=== PATIENT | male | born 1930 | race Caucasian/White ===

== ENCOUNTER → 2016-05-11 | Outpatient (CLI) | payer MEDICARE ==
[~2016-05-11] MED LIST: ACET-703 PO; ASPI-110 PO; D32000TA; DICY10CA12 PO; DOXE50CA3 PO; DULO1CAP3 PO; FOLI400T PO; GABA300C5 PO; LORA-373 PO; NAPR375T PO; OMEP20TA PO; PRED10 PO; SIMV20TA PO; TAMS0.4C4 PO
--- NOTE | 2016-05-11 11:42 | RADRPT ---
EXAM DATE/TIME: 05/11/2016 00:00 [facility] COMPARISON: No previous studies available for comparison. INDICATIONS : Dysphagia FLUORO TIME: 1.9 minutes IMAGE COUNT: 0 CONTRAST: Dose as prescribed by speech pathologist. MEDICAL HISTORY : None. SURGICAL HISTORY : cervical fusion ENCOUNTER: Initial ACUITY: 1 month PAIN SCORE: 0/10 LOCATION: Bilateral esophagus FINDINGS: A modified barium swallow was performed with speech pathology. Patient was given a variety of liquids to swallow. Patient is noted to have extensive cervical spine fusion. Cervical esophagus is noted to be normal jacque th anatomic and physiologic with no penetration or aspiration. For a full detailed report, see report by the speech pathologist. CONCLUSION: Please speech pathology report Bob Parikh MD on May 11, 2016 at 11:40 Board Certified Radiologist. This report was verified electronically.
== END ==
LOC: HRAD 10:32
PROVIDERS: ATTEND Family Medicine
DX: R13.10 Dysphagia, unspecified (principal)
CPT/HCPCS: 74230; 92611; G8996; G8997; G8998

== ENCOUNTER 2016-12-22 11:38 | Emergency (ER) | payer MEDICARE ==
[~2016-12-22] VITALS: Ht 180.3 cm; Wt 80.0 kg
[~2016-12-22 11:38] MED LIST changes: -HYDR-3533 PO; -PRED1 PO; -TYLE325T PO
[2016-12-22 11:52] VITALS: BP 131/68; PULSE 88; RESP 18; TEMP 97.9; O2SAT 93
[2016-12-22] MEDS ORDERED: PRED1 PO (12:13)
--- NOTE | 2016-12-22 13:13 | RADRPT ---
EXAM DATE/TIME: 12/22/2016 12:53 [facility] COMPARISON: CT BRAIN W/O CONTRAST, March 20, 2016, 17:09. INDICATIONS : Fell last night. RADIATION DOSE: 62.01 CTDIvol (mGy) MEDICAL HISTORY : Gastroesophageal reflux disease. Anticoagulant therapy. SURGICAL HISTORY : Fusion, cervical. ENCOUNTER: Initial ACUITY: 2 days PAIN SCALE: 3/10 LOCATION: Left cranial TECHNIQUE: Multiple contiguous axial images were obtained of the head. Using automated exposure control and adjustment of the mA and/or kV according to patient size, radiation dose was kept as low as reasonably achievable to obtain optimal diagnostic quality images. DICOM format image data is av ailable electronically for review and comparison. FINDINGS: Noncontrast axial head CT demonstrates the ventricles to be enlarged with a prominent sulcal pattern compatible with atrophy. No acute intracranial hemorrhage, acute cortical infarction, mass or midline shift is seen. Posterior fossa structures are unremarkable. Bone windows demonstrate no abnormality. CONCLUSION: Atrophy. No evidence of acute intracranial pathology. Arpan Blake MD on December 22, 2016 at 13:11 Board Certified Radiologist. This report was verified electronically.
--- NOTE | 2016-12-22 13:45 | RADRPT ---
EXAM DATE/TIME: 12/22/2016 12:53 [facility] COMPARISON: CT CERVICAL SPINE W/O CONTRAST, March 20, 2016, 17:09. INDICATIONS : Fell last night. Left sided neck pain. RADIATION DOSE: 26.69 CTDIvol (mGy) MEDICAL HISTORY : Gastroesophageal reflux disease. Anticoagulant therapy. SURGICAL HISTORY : Fusion, cervical. ENCOUNTER: Initial ACUITY: 2 days PAIN SCALE: 3/10 LOCATION: Left neck TECHNIQUE: Volumetric scanning of the cervical spine was performed. Multiplanar reconstructions in the sagittal, coronal and oblique axial planes were performed. Using automated exposure control and adjustment o f the mA and/or kV according to patient size, radiation dose was kept as low as reasonably achievable to obtain optimal diagnostic quality images. DICOM format image data is available electronically f or review and comparison. FINDINGS: CT of the cervical spine was performed in sagittal and axial planes. There is anterolisthesis likely related to facet arthritis at C7-T1 at 3-4 mm. There has been no significant change when compared to the prior exam. There is anterior cervical fusion with a plate anteriorly from C3-C7. No focal areas of marrow replacement are identified. A type III odontoid fracture is present oriented in the coronal plane extending from anterior superior to posterior inferior without retropulsion. There is no widen ing of the preodontoid space. A small epidural hematoma is present without stenosis. C2-C3: Small epidural hematoma without stenosis. Bilateral facet arthritis is present C3-C4: Postsurgical changes as above. There is moderate facet arthritis bilaterally with ligamentum flavum h ypertrophy. There is mild neural foraminal narrowing bilaterally. C4-C5: There is no significant spinal canal stenosis. There is moderate facet arthritis bilaterally with lig amentum flavum hypertrophy. The neural foramina are clear bilaterally. C5-C6: Postsurgical changes as above. There is no significant spinal canal stenosis. C6-C7: There is no significant spinal canal stenosis. The neural foramina are clear bilaterally. C7-T1: There is moderate facet arthritis bilaterally with ligamentum flavum hypertrophy. The neural foramina are clear bilaterally. CONCLUSION: 1. Type III odontoid fracture as above without retropulsion. Arpan Blake MD on December 22, 2016 at 13:39 Board Certified Radiologist. This report was verified electronically.
--- NOTE | 2016-12-22 13:53 | PD ---
HPI Chief Complaint: Head Injury Time Seen by Provider: 12:30 Travel History International Travel<30 days: No Contact w/Intl Traveler<30days: No Traveled to known affect area: No History of Present Illness HPI 86yo M presents to the ED with c/o left side neck pain after slip and fall this morning. States he got out of bed to use the bathroom and was walking with his walker but fell in the bathroom and hit his head and neck in the shower. He did not turn on the light so he thinks he may have slipped on something. Denies any dizziness or chest pain prior to fall. Denies any LOC, chest pain, sob, n/v, abdominal pain, focal weakness or numbness. PFSH Past Medical History Hx Anticoagulant Therapy: Yes (ASA 81MG) Anxiety: Yes Depression: Yes High Cholesterol: Yes GERD: Yes Medical other: Yes (ENLARGED PROSTATE) Neurologic: Yes (neuropathy ) Triglycerides - High: Yes Tetanus Vaccination: < 5 Years Influenza Vaccination: No Social History Alcohol Use: No Tobacco Use: No Substance Use: No Allergies-Medications (Allergen,Severity, Reaction): Coded Allergies: No Known Allergies (Unverified , 12/22/16) Reported Meds & Prescriptions Reported Meds & Active Scripts Active Lortab (Hydrocodone-Acetaminophen) 5-325 Mg Tab 1 Tab PO Q6H PRN Reported Prednisone 1 Mg Tab 3 Mg PO DAILY Aspirin 81 (Aspirin) 81 Mg Tabdr 81 Mg PO DAILY D3 (Cholecalciferol) 2,000 Unit Tab Folic Acid 400 Mcg Tab 400 Mcg PO DAILY Tamsulosin (Tamsulosin HCl) 0.4 Mg Cap 0.4 Mg PO HS Simvastatin 20 Mg Tab 20 Mg PO DAILY Omeprazole 20 Mg Tab 20 Mg PO DAILY Naproxen 375 Mg Tab 375 Mg PO BID Gabapentin 300 Mg Cap 300 Mg PO DAILY Duloxetine DR (Duloxetine HCl) 60 Mg Capdr 60 Mg PO DAILY Doxepin (Doxepin HCl) 50 Mg Cap 50 Mg PO HS Dicyclomine (Dicyclomine HCl) 10 Mg Cap 10 Mg PO TID PRN Review of Systems Except as stated in HPI: all other systems reviewed are Neg Physical Exam Narrative GEN: 86yo M not in distress. SKIN: Warm and dry. HEAD: Normocephalic, atraumatic. ENT: No septal hematoma. NECK: In cervical spine collar. TTP left neck. CV: S1, S2. Lungs: CTA B/L, equal breath sounds. Abd: soft, NT/ND. Ext: No gross deformities. Distal pulses intact. Neuro: CNII-XII grossly intact. Muscle strength 5/5 in all extremities. Sensation intact. Data Data Last Documented VS Vital Signs Date Time Temp Pulse Resp B/P (MAP) Pulse Ox O2 Delivery O2 Flow Rate FiO2 12/22/16 14:54 12/22/16 14:10 84 16 97 Room Air 12/22/16 11:[address] Brain W/O Iv Contrast(Rout) (12/22/16 ) Ct Cerv Spine W/O Contrast (12/22/16 ) Acetamin-Hydrocod 325-5 Mg ([place] 5-325 (12/22/16 14:30) Collar [place] (12/22/16 ) Labs MDM Medical Decision Making Medical Screen Exam Complete: Yes Emergency Medical Condition: Yes Interpretation(s) Last Impressions Head CT 12/22/16 0000 Signed Impressions: Service Date/Time: Thursday, December 22, 2016 12:53 - CONCLUSION: Atrophy. No evidence of acute intracranial pathology. Arpan Blake MD Cervical Spine CT 12/22/16 0000 Signed Impressions: Service Date/Time: Thursday, December 22, 2016 12:53 - CONCLUSION: 1. Type III odontoid fracture as above without retropulsion. Arpan Blake MD Differential Diagnosis ICH vs. fracture Narrative Course 86yo M with neck pain s/p trip and fall this morning at 4am. Pt given 1 lortab. Cervical spine collar placed on pt on arrival and said that pain has improved after applying the collar. CT cspine showed type 3 odontoid fracture without retropulsion. I discussed with neurosurgeon Dr. Cottrell and he said that pt can remain in the [place] collar or [place] collar and follow up in his office in a few days. No focal neurologic deficits. CT brain negative for acute intracranial pathology. Return precautions given. It is felt that the [place] collar we have is a little long and we don't have a shorter size so my nurse spoke to [employer] and pt can have them fit him with a [place] collar when he arrives at [facility] ED with the prescription I wrote. Pt is to remain in his [place] collar until then. Pt given 1 lortab for pain. Return precautions given. Diagnosis Primary Impression: Odontoid fracture Qualified Codes: S12.100A - Unspecified displaced fracture of second cervical vertebra, initial encounter for closed fracture Referrals: Maynor Cottrell MD 1 day Odontoid type 3 fracture. Patient Instructions: General Instructions Departure Forms: Tests/Procedures Additional Instructions: Please follow up with Dr. Cottrell in 1-2 days. Return to the ED if symptoms worsen. Med/Other Pt SpecificInfo: Prescription(s) given Scripts Hydrocodone-Acetaminophen (Lortab) 5-325 Mg Tab 1 TAB PO Q6H Y for PAIN, #7 TAB 0 Refills Prov: Toya Cuevas DO 12/22/16 Disposition: 01 DISCHARGE HOME Condition: Stable Toya Cuevas DO Dec 22, 2016 13:53
[2016-12-22 14:10] VITALS: BP 123/79; PULSE 84; RESP 16; O2SAT 97
[2016-12-22] MEDS ORDERED: HYDR-3533 PO (14:16)
[2016-12-22] MEDS ORDERED: ACETAMINOPHEN/HYDROcodone 325 MG/5 MG TAB PO ONE (14:30)
[2016-12-24] MEDS ORDERED: TYLE325T PO (14:21)
[2016-12-24] MEDS ORDERED: FOLI400T PO (14:21)
[2016-12-24] MEDS ORDERED: HYDR-3533 PO (15:28)
[2017-01-11] MEDS ORDERED: HYDR-3533 PO (12:31)
[2017-02-04] MEDS ORDERED: HYDR-3533 PO (15:07)
== END 2016-12-22 14:54 | disposition home or self-care (01) ==
LOC: PHED 11:38
DX: S12.100A Unspecified displaced fracture of second cervical vertebra, initial encounter for closed fracture (principal); Z79.82 Long term (current) use of aspirin; K21.9 Gastro-esophageal reflux disease without esophagitis; N40.0 Benign prostatic hyperplasia without lower urinary tract symptoms; W01.0XXA Fall on same level from slipping, tripping and stumbling without subsequent striking against object, initial encounter; Y93.E8 Activity, other personal hygiene; Y92.002 Bathroom of unspecified non-institutional (private) residence as the place of occurrence of the external cause; Y99.8 Other external cause status
CPT/HCPCS: 70450; 72125; 99285; L0150

== ENCOUNTER → 2016-12-22 | Outpatient (CLI) | payer MEDICARE ==
[~2016-12-22] MED LIST changes: +HYDR-3533 PO; +PRED1 PO; +TYLE325T PO
== END ==
LOC: HORT 15:31
PROVIDERS: ATTEND Emergency Medicine
DX: Z47.89 Encounter for other orthopedic aftercare (principal)
CPT/HCPCS: L0172